=== PATIENT | female | born 1975 | race African-American/Black ===

== ENCOUNTER → 2016-12-02 | Outpatient (CLI) | payer OTHER ==
[~2016-12-02] MED LIST: NO MEDICATIONS
--- NOTE | ~2016-12-02 | CT55 ---
[facility] A Service of [facility] & [facility] RADIOLOGY TEXT RESULTS PATIENT: DARÍO MALLORY LOCATION: [facility] : 79 UNIT #: [id number] AGE: [address]: Misti Baker APRN SEX: F ORDER DR: [id number] [address] [place], [place] [address] [id number] O MR#: [id number] Acc #: [id number] NAME: DARÍO MALLORY : 1975 SEX: F STUDY DATE/TIME: 12/02/2016 13:29 UNIT: [facility] ROOM: STUDY DESCRIPTION: CT Chest W Con Attending Physician: Misti Baker Referring Physician: Misti Baker Ordering Physician: Berry Baker Aprn Primary Care Physician: Misti Baker MEDICAL IMAGING REPORT This report is preliminary unless electronic signature is present EXAM CT of the chest with contrast INDICATIONS 40-year-old female followup from previous chest CT which demonstrated an anterior mediastinal mass. COMPARISON 08/05/2016. MRI of the abdomen from 05/21/[address] of the chest was performed following administration of IV contrast. Coronal and sagittal reformatted images were obtained. This CT exam was performed with one or more of the following radiation dose reduction techniques: automatic exposure control, adjustment of mA and/or kV according to patient size, and iterative reconstruction. FINDINGS Redemonstrated within the anterior mediastinum just anterior to the lower right ventricle is nodular soft tissue attenuation. When compared with the MRI of the abdomen from 05/21/2016, and the previous CT scan this is not significantly changed in size. The area does enhance and this is much better appreciated on the MRI. There is no hilar lymphadenopathy. There are upper limits normal-sized axillary lymph nodes. No pleural effusion. No suspicious pulmonary nodule or airspace consolidation. Limited imaging of the upper abdomen demonstrates lymphadenopathy within the retroperitoneum as seen on the MRI previously. The bone windows are unremarkable. IMPRESSION Redemonstrated is enhancing nodular soft tissue in the lower anterior mediastinum not significantly changed from the previous MRI and CT scan. The enhancement is best demonstrated on the previous MRI. Also [facility] A Service of [facility] & [facility] RADIOLOGY TEXT RESULTS PATIENT: DARÍO MALLORY LOCATION: [facility] : 79 UNIT #: [id number] AGE: [address]: Misti Baker APRN SEX: F ORDER DR: redemonstrated and not significantly changed are multiple and large retroperitoneal lymph nodes within the upper abdomen. Overall findings are concerning for malignancy, in particular lymphoma. Suggest Hematology/Oncology consultation. Dictated by... Bar Muhammad M.D. THIS IS AN ELECTRONICALLY VERIFIED REPORT Bar Muhammad M.D. at 12/03/2016 9:08 AM ARS/to TD: 12/02/2016 15:57 JOB #: [id number] MEDICAL IMAGING REPORT Page 1 of 1 COPY
== END | disposition home or self-care (01) ==
LOC: CCAT 12:59
DX: R91.8 Other nonspecific abnormal finding of lung field (principal); R91.1 Solitary pulmonary nodule
CPT/HCPCS: 71260; Q9967

== ENCOUNTER → 2017-01-27 | Outpatient (CLI) | payer OTHER ==
--- NOTE | ~2017-01-27 | XA60 ---
[facility] A Service of [facility] RADIOLOGY TEXT RESULTS PATIENT: DARÍO MALLORY LOCATION: [facility] : 77 UNIT #: [id number] AGE: [address]: MARIA HARRISON APRN SEX: F ORDER DR: [id number] [place], [place] [address] [id number] O MR#: [id number] Acc #: [id number] NAME: DARÍO MALLORY : 1975 SEX: F STUDY DATE/TIME: 01/27/2017 7:56 UNIT: [facility] ROOM: STUDY DESCRIPTION: XA BX Perc Liver Ordering Physician: Maria Harrison A.P.R.N. MEDICAL IMAGING REPORT This report is preliminary unless electronic signature is present EXAM Ultrasound-guided liver biopsy INDICATIONS Elevated liver function studies. Medications 2 mL of Versed IV and 100 mcg fentanyl IV. Approximately 25 minutes of sedation time was monitored by appropriately credentialed radiology nursing staff. The risks, benefits, and alternatives of the procedure were discussed with the patient and informed consent was obtained. In the procedure room, a time out was performed confirming correct patient and procedure. All elements of maximum sterile-barrier technique utilized according to guidelines appropriate for the procedure. TECHNIQUE/FINDINGS Ultrasound liver was performed. The overlying skin was prepped and draped in the usual sterile fashion. 1% lidocaine was utilized to anesthetize the skin and underlying subcutaneous tissues. Next under ultrasound guidance, a single core biopsy of the right lobe of liver was obtained with an 18-gauge needle and sample sent to pathology. The needle was removed and a sterile dressing was applied. No immediate complications. IMPRESSION Technically successful ultrasound-guided liver biopsy. Dictated by... Bar Muhammad M.D. THIS IS AN ELECTRONICALLY VERIFIED REPORT [facility] A Service [facility] RADIOLOGY TEXT RESULTS PATIENT: DARÍO MALLORY LOCATION: [facility] : 79 UNIT #: [id number] AGE: [address]: MARIA HARRISON APRN SEX: F ORDER DR: Bar Muhammad M.D. at 01/28/2017 7:45 AM ARS/pcl TD: 01/27/2017 21:55 JOB #: [id number] MEDICAL IMAGING REPORT Page 1 of 1 COPY
[2017-01-27 07:22] LABS: HEMATOCRIT 37.2 % (35.0-45.0); HEMOGLOBIN 11.5 gm/dL (12.0-16.0); MEAN CELL VOLUME 76.3 FL (83-96); MEAN CORPUSCULAR HEMOGLOBIN 23.6 PG (28-34); MEAN PLATELET VOLUME 9.1 FL (6.5-11.5); RED BLOOD COUNT 4.88 X10e (3.90-5.30); RED CELL DISTRIBUTION WIDTH 26.4 % (11.0-15.5); WHITE BLOOD COUNT 2.8 X10e3 (4.0-10.5)
[2017-01-27 07:31] LABS: PARTIAL THROMBOPLASTIN TIME 28.2 SECONDS (23.5-31.3); PROTHROMBIN TIME (PATIENT) 10.2 SECONDS (9.6-11.5)
[2017-01-27 08:11] LABS: ALBUMIN SERUM 3.4 g/dL (3.5-5.0); BILIRUBIN,TOTAL 0.7 mg/dL (0.2-2.0); BUN/CREATININE RATIO 15.71; CALCIUM SERUM 9.1 mg/dL (8.4-10.2); CREATININE SERUM 0.7 mg/dL (0.6-1.4); GLOM FILT RATE Estimated 126.5 mL/min (>60); POTASSIUM 3.7 mmol/L (3.5-5.1); PROTEIN TOTAL SERUM 7.8 g/dL (6.0-8.3)
[2017-01-31 17:42] LABS: ANA SCREEN Negative (Negative); GLIADIN IGA AB 13 Units (<20); GLIADIN IGG AB 5 Units (<20); RETICULIN IGA SCREEN W/REFLEX Negative (Negative); TISSUE TRANSGLUTAMINASE IGA AB 1 U/mL (<4)
== END | disposition home or self-care (01) ==
LOC: CIVR 06:35
PROVIDERS: Nurse Practitioner Family
PROC: 0FB13ZX Excision of Right Lobe Liver, Percutaneous Approach, Diagnostic (ICD-10-PCS; principal; 2017-01-27)
DX: K75.3 Granulomatous hepatitis, not elsewhere classified (principal); R93.2 Abnormal findings on diagnostic imaging of liver and biliary tract; F41.9 Anxiety disorder, unspecified; Z88.5 Allergy status to narcotic agent
CPT/HCPCS: 36415; 76942; 80053; 82105; 82728; 83516; 83520; 83540; 84466; 85027; 85610; 85730; 86038; 86039; 86255; 88307; 88312; 88313; J2250; J3010

== ENCOUNTER → 2017-05-13 | Outpatient (CLI) | payer OTHER ==
[2017-05-13 13:50] LABS: HEMATOCRIT 39.9 % (35.0-45.0); HEMOGLOBIN 12.9 gm/dL (12.0-16.0); MEAN CELL VOLUME 81.1 FL (83-96); MEAN CORPUSCULAR HEMOGLOBIN 26.3 PG (28-34); MEAN CORPUSCULAR HGB CONC 32.4 g/dL (30-36); MEAN PLATELET VOLUME 9.5 FL (6.5-11.5); RED BLOOD COUNT 4.92 X10e (3.90-5.30); RED CELL DISTRIBUTION WIDTH 15.5 % (11.0-15.5)
[2017-05-13 14:31] LABS: ALBUMIN SERUM 3.5 g/dL (3.5-5.0); BILIRUBIN,TOTAL 0.9 mg/dL (0.2-2.0); BUN/CREATININE RATIO 18.75; CALCIUM SERUM 9.4 mg/dL (8.4-10.2); CREATININE SERUM 0.8 mg/dL (0.6-1.4); GLOM FILT RATE Estimated 107.7 mL/min (>60); PROTEIN TOTAL SERUM 7.6 g/dL (6.0-8.3)
== END | disposition home or self-care (01) ==
LOC: CLAB 13:11
PROVIDERS: Internal Medicine
DX: R79.89 Other specified abnormal findings of blood chemistry (principal)
CPT/HCPCS: 36415; 80053; 85027

== ENCOUNTER 2017-05-21 15:16 | Emergency (ER) | payer OTHER ==
[~2017-05-21] VITALS: Ht 167.6 cm; Wt 89.3 kg
--- NOTE | ~2017-05-21 | CT2 ---
[facility] A Service of [facility] & [facility] RADIOLOGY TEXT RESULTS PATIENT: DARÍO MALLORY LOCATION: [facility] : 77 UNIT #: [id number] AGE: [address]: Trevin Haprer MD SEX: F ORDER DR: [id number] [facility] [address] [place], [place] [address] [id number] E MR#: [id number] Acc #: [id number] NAME: DARÍO MALLORY : 1975 SEX: F STUDY DATE/TIME: 05/21/2017 18:51 UNIT: [facility] ROOM: STUDY DESCRIPTION: CT Abd and Pelv W Cont Attending Physician: Trevin Harper M.D. Ordering Physician: Giancarlo Garcia M.D. Primary Care Physician: [facility] MEDICAL IMAGING REPORT This report is preliminary unless electronic signature is present EXAM CT abdomen and pelvis with IV contrast COMPARISON CT chest dated December 02, 2016, August 05, 2016, as well as MRCP dated May 21, 2016. INDICATION 41-year-old female with right upper quadrant abdominal pain for [address] imaging of the abdomen and pelvis was performed after IV administration of 100 mL Isovue-370. Coronal and sagittal reformats were constructed. This CT examination was performed with one or more of the following radiation dose reduction techniques: automatic exposure control, adjustment of mA and/or kV according to patient size, and iterative reconstruction. Very small fat-containing umbilical hernia. No acute fractures or suspicious osseous lesions. Small posterior disc protrusion L5-S1. Top normal heart size. Dependent atelectasis in both lower lobes. Ground-glass nodule abutting the pleura in the lingula is stable going back to August 05, 2016. This measures 5 mm. Given the stability, this is considered benign by Fleischner 2017 criteria. Enhancing precardial lymph nodes have diminished in size from November 24, 2016 currently measuring 1.3 cm in maximum dimension versus 3.1 cm previously and the other currently measuring 7 mm versus 10 mm previously. These may reflect reactive lymph nodes. If the patient has a history of malignancy, this could certainly represent treated malignancy. It is noted however the patient does have history of sarcoidosis and this is likely sequela of the patient's known sarcoidosis. Liver, gallbladder, pancreas, spleen, adrenal glands and kidneys are unremarkable. There is no hydronephrosis or hydroureter. There are bilateral pelvic phleboliths. No adnexal masses are seen. Uterus is grossly unremarkable. There is small amount of free fluid in the pelvis, likely physiologic. There is bilateral STS. [facility] A Service of [facility] RADIOLOGY TEXT RESULTS PATIENT: DARÍO MALLORY LOCATION: [facility] : 79 UNIT #: [id number] AGE: [address]: Trevin Harper MD SEX: F ORDER DR: retroperitoneal adenopathy as well as celiac axis adenopathy. This actually appears improved from December 02, 2016 and again in the absence of known malignancy this likely represents sequela of the patient's sarcoidosis. Largest retroperitoneal lymph node is at the level of the left kidney measuring up to 1.6 cm short axis with other lymph nodes seen along the right common iliac artery measuring up to 1.1 cm. Urinary bladder is unremarkable. Adrenal glands are within normal limits. There is also gastrohepatic space adenopathy which appears improved, with the largest lymph node measuring up to approximately 1.7 cm short axis as compared to 2.8 cm in November 2016. Abdominal aorta is normal in course and caliber, with patency of its main branches. No evidence of venous thrombosis. No evidence of bowel obstruction. There is likely a single diverticulum of the transverse colon containing some internal contrast. There are scattered right-sided colonic diverticula. The appendix fills with air and drapes into the pelvis. No evidence of acute appendicitis. IMPRESSION 1. No definite acute abnormality in the abdomen, pelvis or imaged lower chest. The gallbladder appears normal. There is normal biliary caliber. There is questionable intrahepatic periportal edema, nonspecific finding. This may be artifactually related to phase of postcontrast imaging. 2. Top normal heart size. 3. Decreased size of persistently enlarged precardial lymph nodes as well as diminished size of persistently enlarged gastrohepatic space and celiac axis lymph nodes as compared to December 02, 2016. There is also retroperitoneal adenopathy which extends down along the right iliac chain. Correlation to exclude signs of lymphoma are recommended. The patient does have a history of sarcoidosis and this could be secondary to the patient's known sarcoidosis. 4. Small posterior disc protrusion at L5-S1. 5. Trace free fluid in the pelvis, likely physiologic. 6. Colonic diverticulosis without evidence of acute diverticulitis. Dictated by... Johnson Frazier M.D. THIS IS AN ELECTRONICALLY VERIFIED REPORT Johnson Frazier M.D. at 05/27/2017 11:59 AM FELTON/anny TD: 05/22/2017 09:00 JOB #: [id number] MEDICAL IMAGING REPORT Page 1 of 1 COPY
[2017-05-21 16:13] LABS: BASOPHIL% 1.4 % (0-2.5); EOSINOPHIL# 0.2 X10e3 (0-0.7); EOSINOPHIL% 5.4 % (0.0-7.0); HEMATOCRIT 39.6 % (35.0-45.0); HEMOGLOBIN 13.1 gm/dL (12.0-16.0); LYMPHOCYTE# 0.7 X10e3 (1.0-3.5); LYMPHOCYTE% 22.4 % (17.0-45.0); MEAN CELL VOLUME 80.5 FL (83-96); MEAN CORPUSCULAR HEMOGLOBIN 26.7 PG (28-34); MEAN CORPUSCULAR HGB CONC 33.2 g/dL (30-36); MEAN PLATELET VOLUME 9.3 FL (6.5-11.5); MONOCYTE# 0.3 X10e3 (0-1.0); MONOCYTE% 8.6 % (3.0-12.0); NEUTROPHIL# 1.9 X10e3 (1.5-7.1); NEUTROPHIL% 62.2 % (40-75); PLATELET COUNT 217 X10e3 (140-420); RED BLOOD COUNT 4.92 X10e (3.90-5.30); RED CELL DISTRIBUTION WIDTH 16.1 % (11.0-15.5)
[2017-05-21 16:25] LABS: DIFF IND NO
[2017-05-21 16:44] LABS: ALBUMIN SERUM 3.6 g/dL (3.5-5.0); BILIRUBIN, DIRECT 0.1 mg/dL (0.0-0.2); BILIRUBIN,INDIRECT 0.5 mg/dL (0.0-0.9); BILIRUBIN,TOTAL 0.6 mg/dL (0.2-2.0); CALCIUM SERUM 9.2 mg/dL (8.4-10.2); GLOM FILT RATE Estimated 82.2 mL/min (>60); POTASSIUM 3.8 mmol/L (3.5-5.1); PROTEIN TOTAL SERUM 8.1 g/dL (6.0-8.3)
[2017-05-21 17:28] LABS: URINE SOURCE CLEAN CATCH
[2017-05-21 17:33] LABS: URINE APPEARANCE CLEAR; URINE BILIRUBIN NEG (NEG); URINE BLOOD 3+ (NEG); URINE COLOR YELLOW; URINE GLUCOSE NEG (NEG); URINE KETONE NEG (NEG); URINE LEUKOCYTE ESTERASE NEG (NEG); URINE NITRATE NEG (NEG); URINE PH 5.5 (5-8); URINE PROTEIN NEG (NEG); URINE SPECIFIC GRAVITY 1.027 (1.003-1.035)
[2017-05-21 17:36] LABS: URBCS1 AUWI INNUM /[HPF] (0-2); URINE BACTERIA AUWI NEG (NEGATIVE); URINE SQUAMOUS EPITHELIAL CELL NONE SEEN /[HPF]; UWBCS1 AUWI 0-2 (0-5)
[2017-05-21 17:37] LABS: CULTURE INDICATED? NO
== END 2017-05-21 21:25 | disposition home or self-care (01) ==
LOC: CED 15:16
DX: K75.89 Other specified inflammatory liver diseases (principal); Z88.6 Allergy status to analgesic agent
CPT/HCPCS: 36415; 74177; 80048; 80076; 81003; 83690; 84703; 85025; 96374; 99284; J1885; Q9967